=== PATIENT | female | born 1960 | race African-American/Black ===

== ENCOUNTER 2017-12-03 14:30 | Emergency (ER) | payer MEDICARE, MEDICAID ==
--- NOTE | 2017-12-03 15:07 | ED Physician Chart ---
ED Chief Complaint/HPI - Patient Information Date Seen:: 12/03/17 Time Seen:: 15:02 Chief Complaint:: fall lt ankle pain History of Present Illness:: 57 yr [place] trip and fall last th with lt ankle swelling daughter been rubbing it down with alcohol Allergies:: Allergies Allergy/AdvReac Type Severity Reaction Status Date / Time No Known Allergies Allergy Verified 12/03/17 14:48 Vitals:: Vital Signs - 8 hr 12/03/17 14:48 Temp 97.6 F HR 66 RR 17 BP 167/69 O2 Sat % 100 ED Review of Systems - Review of Systems General/Constitutional: No fever Skin: No skin lesions ENT: No earache Neck: No neck pain Cardio Vascular: No chest pain Pulmonary: No SOB GI: No nausea G/U: No dysuria Musculoskeletal: Bone or joint pain (swelling lt ankle) Endocrine: No polyuria Psychiatric: No prior psych history ED Past Medical History - Past Medical History Past Medical History: HTN ED Physical Exam - Physical Examination General/Constitutional: Awake, Well-developed, well-nourished, Alert, No distress, GCS 15, Non-toxic appearing, Ambulatory Head: Atraumatic Eyes: Lids, conjuctiva normal, PERRL, EOMI Skin: Nl inspection, No rash, No skin lesions, No ecchymosis, Well hydrated, No lymphadenopathy ENMT: External ears, nose nl, Nasal exam nl, Lips, teeth, gums nl Neck: Nontender, Full ROM w/o pain, No JVD, No nuchal rigidity, No bruit, No mass, No stridor Respiratory: Nl effort/Exclusion, Clear to Auscultation, No Wheeze/Rhonchi/Rales Cardio Vascular: RRR, No murmur, gallop, rubs, NL S1 S2 GI: No tenderness/rebounding/guarding, No organomegaly, No hernia, Normal BS's, Nondistended, No mass/bruits, No McBurney tenderness : No CVA tenderness Extremities: No tenderness or effusion, Full ROM, normal strength in all extremities, No edema, Normal digits & nails Other Extremities comments:: swelling tenderness lt ankle and decreased rom Neuro/Psych: Alert/oriented, DTR's symmetric, Normal sensory exam, Normal motor strength, Judgement/insight normal, Mood normal, Normal gait, No focal deficits Misc: Normal back, No paraspinal tenderness ED Assessment - Assessment General Assessment: lt ankle sprain xray to r.o fx ED Septic Shock - . Is Septic Shock (SBP<90, OR Lactate>4 mmol\L) present?: No - <6hrs of presentation: Vital Signs: Vital Signs - 8 hr 12/03/17 14:48 Temp 97.6 F HR 66 RR 17 BP 167/69 O2 Sat % 100 ED Reassessment (Disposition) - Reassessment Reassessment:: lt ankle contusion r/o fx - Diagnosis Diagnosis:: lt ankle sprain - Aftercare/Follow up Instructions Aftercare/Follow-Up Instructions:: Counseled pt regarding lab results/diagnosis & need follow up - Patient Disposition Discharge/Transfer:: Home Condition at Disposition:: Stable
--- NOTE | 2017-12-04 08:41 | Diagnostic Imaging Report ---
Left ankle (3 views) HISTORY: Pain, swelling, trauma Soft tissue swelling is seen. No acute bony abnormalities identified. Joint spaces appear normal. Faint calcification noted in the soft tissues adjacent to the posterior margin of the calcaneus. The finding is probably on a dystrophic basis. IMPRESSION: 1. No definite acute bony abnormalities. In the presence of recent trauma and persistent symptoms, a repeat radiograph in 5-7 days may be helpful for detection of a subtle or occult fracture.
== END 2017-12-03 15:58 | disposition home or self-care (01) ==
LOC: ER 14:30
DX: S93.402A Sprain of unspecified ligament of left ankle, initial encounter (principal); I10 Essential (primary) hypertension; W01.0XXA Fall on same level from slipping, tripping and stumbling without subsequent striking against object, initial encounter; Y93.89 Activity, other specified; Y92.89 Other specified places as the place of occurrence of the external cause; Y99.8 Other external cause status
CPT/HCPCS: 73610-TC; Z7502